=== PATIENT | female | born 1975 ===

== ENCOUNTER 2019-09-25 10:59 | Outpatient (CLI) | payer OTHER | END 2019-09-25 11:00 | disposition home or self-care (01) | LOC: RAD 10:59 | DX: R07.89 Other chest pain (principal) ==

== ENCOUNTER 2019-09-25 11:32 | Outpatient (CLI) | payer OTHER | END 2019-09-25 14:27 | disposition home or self-care (01) | LOC: EKG 11:32 | DX: E07.89 Other specified disorders of thyroid (principal) ==

== ENCOUNTER 2021-03-03 10:28 | Outpatient (CLI) | payer OTHER | END 2021-03-03 10:37 | disposition home or self-care (01) | LOC: RAD 10:28 | DX: M77.31 Calcaneal spur, right foot (principal); S99.211A Salter-Harris Type I physeal fracture of phalanx of right toe, initial encounter for closed fracture ==